=== PATIENT | male | born 1990 | race Two or more races ===

== ENCOUNTER 2022-11-11 15:57 | Emergency (ER) | payer BC, MEDICAID, SELFPAY ==
[2022-11-11 16:19] VITALS: BP 128/82; PULSE 71; RESP 20; TEMP 37.1; O2SAT 99
--- NOTE | 2022-11-11 16:20 | USR_ITS ---
PROCEDURE INFORMATION: Exam: US Scrotum and US Duplex Artery and Vein, Scrotum, Complete Exam date and time: 11/11/2022 5:01 PM Age: 32 years old Clinical indication: Scrotum pain; Additional info: Testicular pain, eval trauma/torsion TECHNIQUE: Imaging protocol: Real-time ultrasound of the scrotum. Real-time duplex ultrasound scan of the arterial and venous flow of the scrotum with B-mode, color Doppler flow and spectral waveform analysis. Complete exam. Duplex exam was performed to evaluate for torsion and other vascular conditions. COMPARISON: No relevant prior studies available. FINDINGS: Right testicle: Right testis measures 4.6 x 2.2 x 3.2 cm and shows normal uniform echogenicity. There is no focal abnormality within the right testicle. There is normal Doppler flow with normal arterial and venous waveforms.. Left testicle: Left testicle measures 4.5 x 2.3 x 3.0 cm and shows normal uniform echogenicity. There is no focal abnormality in the left testicle. There is normal Doppler flow with normal arterial and venous waveforms. Epididymides: There is a 7 mm sized epididymal cyst or spermatocele in the right epididymis. Scrotum: There are small hydroceles bilaterally. US/US scrotum [id number] IMPRESSION: 1. Small bilateral hydroceles. 2. No evidence for testicular torsion.
--- NOTE | 2022-11-11 17:53 | ED_ITS ---
HPI - Male Genitourinary General: Chief complaint: Urogenital-Male Stated complaint: testicular pain Time Seen by Provider: 11/11/22 17:53 History of Present Illness: 32-year-old male patient comes in today with right testicular pain. Patient reports a history of playing basketball and doing a lot of activity that he had not been used to. After that patient started having increased pain and discomfort to the right testicle and thigh. Patient appears nontoxic. Patient appears in no acute distress. Review of Systems : Reports: other (Right testicular pain) PFSH ED PFSH: Social History Smoking and tobacco status: never smoked Alcohol intake: never Physical Exam Const: COMMON NORMALS: alert HENMT: COMMON NORMALS: normocephalic HEAD & SCALP: normocephalic Neck/C-Spine: COMMON NORMALS: full ROM Chest: COMMONS NORMALS: normal inspection of the chest Resp: COMMON NORMALS: normal respiratory effort and clear to auscultation bilaterally AUSCULTATION: clear to auscultation bilaterally Cardio: COMMON NORMALS: regular rate and regular rhythm RATE: regular rate RHYTHM: regular rhythm GI: COMMON NORMALS: non-tender : COMMON NORMALS: Yes no CVA tenderness BLADDER/KIDNEY EXAM: Yes no CVA tenderness PENIS: normal penis TESTES: Yes testicular lie normal, No testicular mass, No epididymal induration, No high-riding testicle and Yes other (no palpable hernia noted) Back/Pelvis: COMMON NORMALS: no CVA tenderness Extremity: COMMON NORMALS: full ROM Neuro: SENSORIUM/ORIENTATION: Yes alert Course Vital Signs: Vital signs: Vital Signs Temperature 98.7 F 11/11/22 16:19 Pulse Rate 72 11/11/22 19:24 Respiratory Rate 16 11/11/22 19:24 Blood Pressure 113/78 11/11/22 19:00 Pulse Oximetry 99 11/11/22 19:24 Oxygen Delivery Me thod 11/11/22 18:38 MDM - Male Medical Decision Making 32-year-old male patient comes in with some right testicular pain and disco mfort. On exam normal genitalia exam without any signs of redness or induration. No palpable hernias noted. Vital signs are normal. Differential diagnosis includes but not limited to strain, testicular torsion, epididymitis, UTI. Ultrasound of the scrotum noted normal blood flow to bilateral testicles and no significant abnormalities except incidentally a small spermatocele in the left epididymal area. Urinalysis was normal. Reviewed exam with patient with recommendations for treatment and follow-up. Patient reported understanding and agreed to plan. Lab Data Radiology Impressions Scrotum Ultrasound 11/11/22 16:20 IMPRESSION: 1. Small bilateral hydroceles. 2. No evidence for testicular torsion. Laboratory Results Urine Color Light yellow (Yellow) 11/11/22 18:15 Urine Appearance Clear (CLEAR) 11/11/22 18:15 Urine pH 7 (5-7) 11/11/22 18:15 Ur Specific [place] 1.000 (1.005-1.030) L 11/11/22 18:15 Urine Protein Neg (Negative) 11/11/22 18:15 Urine Glucose (UA) Norm (Normal) 11/11/22 18:15 Urine Ketones Negative (Negative) 11/11/22 18:15 Urine Blood Neg (Negative) 11/11/22 18:15 Urine Nitrate Negative (Negative) 11/11/22 18:15 Urine Bilirubin Neg (Negative) 11/11/22 18:15 Urine Urobilinogen Neg mg/dL (Negative) 11/11/22 18:15 Ur Leukocyte Esterase Negative (Negative) 11/11/22 18:15 Discharge Plan Discharge Patient Disposition: Home Clinical Impression: Strain of right inguinal region Condition: Stable Prescriptions: No Action No Known Home Medications Discharge Orders: Discharge ED (Routine); Ordered 11/11/22 Ordered By: Bobby Haile Discharge Diet: Usual diet Discharge Activity: Increase activity as tolerated Patient Instructions: Muscle Strain (ED) Activity Restrictions/Additional Instructions: Use acetaminophen or ibuprofen for pain. Maintain activity as tolerated. Use ice or heat for further pain relief. Follow-up with primary care for further instruction and evaluation. Coding Level of Care Code ED Location Manager for Katalina Fwd Exam Comprehensive
[2022-11-11 17:54] VITALS: BP 143/84; RESP 16
[2022-11-11 18:32] LABS: Add Urine Microscopic? NO; Charge for UA Resulting for Rev
[2022-11-11 18:34] VITALS: BP 111/66; PULSE 109; RESP 22; O2SAT 97
[2022-11-11 18:38] VITALS: PULSE 68; O2SAT 97
[2022-11-11 19:00] VITALS: BP 113/78; PULSE 80; RESP 16
[2022-11-11 19:15] LABS: Urine Color Light yellow (Yellow)
[2022-11-11 19:16] LABS: Bilirubin Urine Neg (Negative); Blood Urine Neg (Negative); Glucose Urine UA Norm (Normal); Ketones Urine Negative (Negative); Leukocyte Esterase Urine Negative (Negative); Nitrate Urine Negative (Negative); Protein Urine Neg (Negative); Urine Appearance Clear (CLEAR); Urobilinogen Urine Neg (Negative); pH Urine 7 (5-7)
[2022-11-11 19:24] VITALS: PULSE 72; RESP 16; O2SAT 99
== END 2022-11-11 19:25 | disposition home or self-care (01) ==
PROVIDERS: Emergency Medicine; Emergency Provider Nurse Practitioner Family
DX: S39.011A Strain of muscle, fascia and tendon of abdomen, initial encounter (principal); X58.XXXA Exposure to other specified factors, initial encounter; Y93.67 Activity, basketball
CPT/HCPCS: 76870; 81003; 99284

== ENCOUNTER 2024-02-17 13:42 | Emergency (ER) | payer BC, MEDICAID, SELFPAY ==
--- NOTE | 2024-02-17 13:53 | XRR_ITS ---
PROCEDURE INFORMATION: Exam: XR Chest Exam date and time: 02/17/2024 2:06 PM Age: 34 years old Clinical indication: Pain; Angina pectoris; Additional info: Chest pain TECHNIQUE: Imaging protocol: Radiologic exam of the chest. Views: 1 view. COMPARISON: No relevant prior studies available. FINDINGS: Lungs: No focal consolidation. Pleural spaces: No evidence of pneumothorax. No evidence of pleural effusion. Heart/Mediastinum: Cardiomediastinal silhouette is within normal limits. Bones/joints: No evidence of acute osseous abnormality. XR/XR chest 1V portable [id number] IMPRESSION: 1. No acute cardiopulmonary abnormality.
--- NOTE | 2024-02-17 13:53 | ECG_ITS ---
[facility] Test Date: 2024-02-17 Pat Name: Sylvester Gordon Department: Room: Gender: Male Data Typist: : 1990 Requested By: Pina Jarvis Order Number: [id number] Patricio MD: Yariel Jones M.D. Measurements Intervals [place] Rate: 58 P: 73 [place]: 167 QRS: 91 QRSD: 89 T: 19 QT: 363 QTc: 358 Interpretive Statements SINUS BRADYCARDIA BORDERLINE RIGHT AXIS DEVIATION [QRS AXIS > 90] ST ELEVATION, PROBABLY EARLY REPOLARIZATION [ST ELEVATION WITH NORMALLY INFLECTED T-WAVE] No previous ECG available for comparison Electronically Signed On 02-17-2024 15:10:39 CDT by Yariel Jones M.D. [id number] f
[2024-02-17 13:54] VITALS: BP 111/74; PULSE 72; RESP 18; TEMP 36.3; O2SAT 100; BMI 19.3
[2024-02-17 14:59] LABS: Basophils % 0.3 %; Eosinophils # 0.2 10^3/uL (0.0-0.8); Eosinophils % 3.5 %; Hematocrit 42.2 % (37-53); Lymphocytes # 2.2 10^3/uL (0.8-4.8); Lymphocytes % 35.8 %; Mean Corpuscular HGB Conc 33.2 g/dL (30-55); Mean Corpuscular Hemoglobin 29.4 pg (27-33); Mean Corpuscular Volume 88.5 fl (82-101); Mean Platelet Volume 10.3 fL (7.4-10.4); Monocytes # 0.4 10^3/uL (0.2-0.9); Monocytes % 7.2 %; Neutrophils # 3.18 10^3/uL (1.8-7.7); Nucleated Red Blood Cells % 0 %; Platelet Count 328 10^3/cmm (157-399); Red Blood Count 4.77 10^6/uL (3.85-5.65); Red Cell Distribution Width 13.1 % (12.1-15.1)
--- NOTE | 2024-02-17 15:07 | W.ED.CHESTPA ---
HPI - Chest Pain General: Chief Complaint: Chest Pain Stated Complaint: chest pains Time Seen by Provider: 02/17/24 13:53 History of Present Illness: 34-year-old male patient comes in today with chest discomfort. Patient reports he has noticed the pain for the last 4 days. Patient has been having some increase in dizziness. Patient does endorse a chronic episodes of dizziness over the last several years. Patient denies any tobacco use, alcohol use, or marijuana use. Patient works as a teacher teaching fifth and sixth grade. Patient states that his chest pressure makes it feel like his heart swollen. Patient denies any recent illness. Patient takes no routine medications. Patient reports that all he ever uses ashley tea when he has any discomfort. Patient has an occasional cough when talking with the patient. Patient also sighs frequently. Associated symptoms: Deny abdominal pain, dyspnea, fever(s) or nausea Review of Systems General: Reports: 10 or more systems reviewed and unremarkable except in HPI and below Const: Denies: fever(s) or body aches Eyes: Denies: change in vision ENMT: Denies: throat pain or ear or mastoid pain Card: Reports: chest pain and lightheadedness Resp: Denies: dyspnea GI: Denies: abdominal pain, nausea, heartburn, diarrhea or constipation : Denies: difficulty urinating Musc: Denies: neck pain or back pain Skin/Breast: Denies: rash Neuro: Reports: headache(s), dizziness and vertigo [facility] ED PFSH: Medical History (Updated 02/17/24 @ 16:47 by NICHOLE Rowe) Shortness of breath Dizziness, nonspecific Social History Smoking and tobacco/nicotine status: never used tobacco/nicotine Alcohol intake: never Substance/Drug Use: never Physical Exam Const: COMMON NORMALS: alert HENMT: COMMON NORMALS: normocephalic HEAD & SCALP: normocephalic Neck/C-Spine: COMMON NORMALS: full ROM Chest: COMMONS NORMALS: normal inspection of the chest and normal palpation of entire chest wall Resp: COMMON NORMALS: normal respiratory effort and clear to auscultation bilaterally AUSCULTATION: clear to auscultation bilaterally Cardio: COMMON NORMALS: regular rate and regular rhythm RATE: regular rate RHYTHM: regular rhythm GI: COMMON NORMALS: Soft to palpation and non-tender PALPATION: Yes Soft to palpation : COMMON NORMALS: Yes no CVA tenderness BLADDER/KIDNEY EXAM: Yes no CVA tenderness Back/Pelvis: COMMON NORMALS: no CVA tenderness Extremity: COMMON NORMALS: no pedal edema Neuro: SENSORIUM/ORIENTATION: Yes alert Skin: COMMON NORMALS: turgor normal GENERAL SKIN EXAM: turgor normal Course Vital Signs: Vital signs: Vital Signs Temperature 97.4 F L 02/17/24 13:54 Pulse Rate 72 02/17/24 13:54 Respiratory Rate 18 02/17/24 13:54 Blood Pressure 111/74 02/17/24 13:54 Pulse Oximetry 100 02/17/24 13:54 Oxygen Delivery Me thod Room Air 02/17/24 13:54 MDM - Chest Pain Medical Decision Making Patient comes in today for some chest discomfort for last 4 days. On exam patient appears nontoxic. Patient does appear anxious. Patient has an occasional cough. Posterior pharynx shows some cobblestoning. Respirations are even lungs are clear to auscultation. Abdomen soft nontender. Chest wall is nontender. Differential diagnosis includes not limited to GERD, postnasal drip, unlikely ACS, pneumonia, anxiety, costochondritis. Troponin was normal and unchanged at the 2-hour chasity. CRP was normal. I do not believe patient's chest pain is related to his heart. Believe patient most likely has some reflux disease due to the pain and the cobblestoning in the posterior pharynx. Patient does have this persistent short cough and clearing of the throat. I think a trial of pantoprazole for the next 2 to 3 weeks would be good to reevaluate his pain and consider may be endoscopy for further evaluation of esophagitis. Another thought may be postnasal drip secondary to allergy rhinitis. Patient has had this persistent dizziness for many years but states worsening symptoms over the last 2 to 3 months. Recommended neurology evaluation for probable M?ni?re's disease I did state that he may need to have to see the jewel bearing grinder but at this time I recommended neurology to rule out any central nervous system problems versus peripheral nervous system problems. Lab Data 02/17/24 14:45 02/17/24 14:45 Radiology Impressions Chest X-Ray 02/17/24 13:53 IMPRESSION: 1. No acute cardiopulmonary abnormality. Head CT 02/17/24 15:42 IMPRESSION: 1. No acute intracranial abnormality. Laboratory Results WBC 6.00 10^3/uL (3.29-11.43) 02/17/24 14:45 RBC 4.77 10^6/uL (3.85-5.65) 02/17/24 14:45 Hgb 14.00 g/dL (11.27-16.99) 02/17/24 14:45 Hct 42.2 % (37-53) 02/17/24 14:45 MCV 88.5 fl (82-101) 02/17/24 14:45 MCH 29.4 pg (27-33) 02/17/24 14:45 MCHC 33.2 g/dL (30-55) 02/17/24 14:45 RDW 13.1 % (12.1-15.1) 02/17/24 14:45 Plt Count 328 10^3/cmm (157-399) 02/17/24 14:45 MPV 10.3 fL (7.4-10.4) 02/17/24 14:45 Neut % (Auto) 53.0 % 02/17/24 14:45 Lymph % (Auto) 35.8 % 02/17/24 14:45 [place] % (Auto) 7.2 % 02/17/24 14:45 Eos % (Auto) 3.5 % 02/17/24 14:45 Baso % (Auto) 0.3 % 02/17/24 14:45 Neut # (Auto) 3.18 10^3/uL (1.8-7.7) 02/17/24 14:45 Lymph # (Auto) 2.2 10^3/uL (0.8-4.8) 02/17/24 14:45 [place] # (Auto) 0.4 10^3/uL (0.2-0.9) 02/17/24 14:45 Eos # (Auto) 0.2 10^3/uL (0.0-0.8) 02/17/24 14:45 Baso # (Auto) 0.0 10^3/uL (0.0-0.1) 02/17/24 14:45 Nucleated RBC % (auto) 0 % 02/17/24 14:45 Nucleated RBCs # 0.0 /100WBC 02/17/24 14:45 Sodium 140 mmol/L (136-145) 02/17/24 14:45 Potassium 4.1 mmol/L (3.5-5.1) 02/17/24 14:45 Chloride 105 mmol/L (98-107) 02/17/24 14:45 Carbon Dioxide 26 mmol/L (22-29) 02/17/24 14:45 Anion Gap 13.1 (5-19) 02/17/24 14:45 BUN 15 mg/dL (6-20) 02/17/24 14:45 Creatinine 0.9 mg/dL (0.7-1.2) 02/17/24 14:45 GFR Calculation 96.6 mL/min (90-130) 02/17/24 14:45 Glucose 105 mg/dL (65-115) 02/17/24 14:45 Calculated Osmolality 291 mOsm/kg (285-295) 02/17/24 14:45 Calcium 9.8 mg/dL (8.5-10.5) 02/17/24 14:45 Total Bilirubin 0.3 mg/dL (0.15-1.2) 02/17/24 14:45 AST 17 U/L (0-40) 02/17/24 14:45 ALT 19 U/L (0-41) 02/17/24 14:45 Alkaline Phosphatase 82 U/L (40-130) 02/17/24 14:45 Troponin T Baseline 8 ng/L (0-15) 02/17/24 14:45 Troponin T 120 Minute 6.82 ng/L (0-15) 02/17/24 16:19 Delta Troponin T -1.18 ABS# (0-10) L 02/17/24 16:19 C-Reactive Protein 3.0 mg/L (0.0-4.9) 02/17/24 14:45 Total Protein 7.4 g/dL (6.6-8.7) 02/17/24 14:45 Albumin 4.6 g/dL (3.5-5.2) 02/17/24 14:45 Globulin 2.8 g/dL (1.3-4.6) 02/17/24 14:45 All radiology interpretation(s) finalized by discharge EKG Data EKG 1: I personally reviewed and interpreted this EKG as follows: EKG interpretation date: 02/17/24 EKG interpretation time: 13:51 Prior EKG tracings: not available for review Interpretation: EKG shows a sinus bradycardia with a regular rate at [address] elevation is noted. No ectopy is noted. No prior exam was available for comparison. Computer generated interpretation: Sinus bradycardia, borderline right axis deviation, ST elevation, probable early repolarization, Discharge Plan Discharge Patient Disposition: Home Clinical Impression: Dizziness, nonspecific Chest pain Qualifiers: Chest pain type: unspecified Qualified Code(s): R07.9 - Chest pain, unspecified Acid reflux disease Qualifiers: Esophagitis presence: esophagitis presence not specified Qualified Code(s): K21.9 - Gastro-esophageal reflux disease without esophagitis Condition: Stable Prescriptions: New pantoprazole 40 mg tablet,delayed release (DR/EC) 40 mg PO DAILY 28 Days Qty: 30 0RF Discharge Orders: Discharge ED (Routine); Ordered 02/17/24 Ordered By: Bobby Haile Discharge Diet: Usual diet Discharge Activity: Increase activity as tolerated Patient Instructions: Dizziness (ED), Esophagitis (ED) Activity Restrictions/Additional Instructions: Continue with pantoprazole 40 mg daily for the next 2 to 4 weeks. Follow-up with primary care in 1 week for recheck. Case management will contact you regarding a follow-up with neurologist for further evaluation of your dizziness. Return to ER for worsening symptoms such as blood in stool, fever greater than 100.4, increasing shortness of breath, or new concerns. Coding Level of Care Code ED Field Artillery Operations Specialist for Katalina Murrieta
[2024-02-17 15:25] LABS: Alanine Aminotransferase 19 U/L (0-41); Albumin Level 4.6 g/dL (3.5-5.2); Alkaline Phosphatase 82 U/L (40-130); Anion Gap 13.1 (5-19); Aspartate Amino Transferase 17 U/L (0-40); Blood Urea Nitrogen 15 mg/dL (6-20); Calcium 9.8 mg/dL (8.5-10.5); Carbon Dioxide 26 mmol/L (22-29); Chloride 105 mmol/L (98-107); Creatinine Clr Calc Pharmacy 111.7155; Globulin 2.8 g/dL (1.3-4.6); Glomerular Filtration Rate 96.6 mL/min (90-130); Glucose 105 mg/dL (65-115); Osmolality Calculated 291 mOsm/kg (285-295); Potassium 4.1 mmol/L (3.5-5.1); Sodium 140 mmol/L (136-145); Total Bilirubin 0.3 mg/dL (0.15-1.2); Total Protein 7.4 g/dL (6.6-8.7); Troponin(5th) Baseline 8 ng/L (0-15)
--- NOTE | 2024-02-17 15:42 | CTR_ITS ---
PROCEDURE INFORMATION: Exam: CT Head Without Contrast Exam date and time: 02/17/2024 3:53 PM Age: 34 years old Clinical indication: Dizziness; Additional info: Headache dizziness TECHNIQUE: Imaging protocol: Computed tomography of the head without contrast. Radiation optimization: All CT scans at this facility use at least one of these dose optimization techniques: automated exposure control; mA and/or kV adjustment per patient size (includes targeted exams where dose is matched to clinical indication); or iterative reconstruction. COMPARISON: No relevant prior studies available. RADIATION DOSE METRICS: Total DLP (mGy-cm): 1079.99 FINDINGS: Brain: No evidence of intra-axial or extra-axial hemorrhage. No mass effect or midline shift. Mccollum-white differentiation is maintained. Basilar cisterns are patent. Cerebral ventricles: No hydrocephalus. Paranasal sinuses: The visualized paranasal sinuses are well aerated. Mastoid air cells: The visualized mastoids and middle ears are clear. Bones/joints: The visualized calvarium and bony orbits are intact. Soft tissues: No gross soft tissue abnormality. CT/CT head wo con* [id number] IMPRESSION: 1. No acute intracranial abnormality.
[2024-02-17 16:28] VITALS: BP 106/72; PULSE 55; RESP 18; O2SAT 98
--- NOTE | 2024-02-17 16:30 | ECG_ITS ---
[facility] Test Date: 2024-02-17 Pat Name: Sylvester Gordon Department: Room: Gender: Male Transport Engineer: : 1990 Requested By: Pina Jarvis Order Number: [id number] Sheng MD: Francisco Tatum M.D. Measurements Intervals [place] Rate: 54 P: 65 [place]: 168 QRS: 81 QRSD: 92 T: 63 QT: 375 QTc: 356 Interpretive Statements SINUS BRADYCARDIA WITH SINUS ARRHYTHMIA EARLY REPOLARIZATION [ST ELEVATION WITH NORMALLY INFLECTED T-WAVE] Compared to ECG 02/17/2024 13:51:11 ST (T wave) deviation no longer present Electronically Signed On 02-19-2024 19:45:36 CDT by Francisco Tatum M.D. [id number]
[2024-02-17 16:47] LABS: Troponin 5 2HR 6.82 ng/L (0-15)
[2024-02-17 16:49] LABS: Troponin 5 2HR Delta -1.18 ABS# (0-10)
[2024-02-17] MEDS: pantoprazole DR 40 mg Tablet PO (17:06)
[2024-02-17 17:10] VITALS: BP 100/74; PULSE 58; RESP 17; O2SAT 98
--- NOTE | 2024-02-18 11:19 | DCPLANNER ---
Spoke with Neurology clinic on 02/18/24 @ 1056 and got an appointment for the patient to see Dr. Alcantar on Sunday June 16, 2024 at 815am. Left message for the patient on 02/18/24 at 1128 informing him of his appointment date and time.
--- NOTE | 2024-02-18 12:25 | DCPLANNER ---
Called [facility], they will be contacting the patient and setting up an appointment date and time.
== END 2024-02-17 17:11 | disposition home or self-care (01) ==
PROVIDERS: Emergency Medicine; Emergency Provider Nurse Practitioner Family
DX: R07.9 Chest pain, unspecified (principal); R42 Dizziness and giddiness; K21.9 Gastro-esophageal reflux disease without esophagitis
CPT/HCPCS: 36415; 70450; 71045; 80053; 84484; 85025; 86140; 93005; 99285

== ENCOUNTER → 2024-03-22 13:22 | Outpatient (BNVA) | payer SELFPAY | PROVIDERS: Referring Provider Nurse Practitioner Family; Visit Provider Internal Medicine | DX: R07.9 Chest pain, unspecified (principal) | CPT/HCPCS: 93005 ==